=== PATIENT | male | born 1965 | race Caucasian/White ===

== ENCOUNTER → 2017-10-23 | Outpatient (CLI) | payer OTHER ==
[~2017-10-23] MED LIST: FLUT0.0529 NAE
--- NOTE | 2017-10-23 08:51 | DIAGNOSTIC IMAGING REPORT ---
L KNEE 1 OR 2 VIEWS ROUTINE CLINICAL HISTORY: Left knee pain. COMPARISON: None FINDINGS: Alignment of left knee is anatomic. No fracture or suspicious lesion is evident. There is no definite left knee joint effusion. Lateral view demonstrates a 9 mm apparent bony excrescence arising from the proximal tibia which is not apparent on frontal projection. Joint spaces are preserved. IMPRESSION: 1. Preserved joint spaces of left knee. 2. Apparent 9 mm bony excrescence arising from the proximal tibia on lateral projection. This could reflect an osteophyte or less likely joint body. Electronically signed by: Heath Duarte M.D. 10/23/2017 8:50 AM Dictated Date/Time: 10/23/2017 8:47 AM
== END | disposition home or self-care (01) ==
LOC: C.RAD1850 08:36
PROVIDERS: ATTEND Family Medicine
DX: M25.562 Pain in left knee (principal)